=== PATIENT | female | born 1955 | race African-American/Black ===

== ENCOUNTER 2021-11-14 15:48 | Emergency (ER) | payer MEDICAID, MEDICARE ==
[~2021-11-14] VITALS: Ht 162.6 cm; Wt 70.0 kg
[~2021-11-14 15:48] MED LIST: INS7030 SUBCUT; METH-818 PO; MIRT45TA PO
[2021-11-14 16:45] LABS: BASOPHILS % 0.5 % (0.0-2.0); HEMATOCRIT. 29.7 % (36.0-48.0); HEMOGLOBIN. 9.6 g/dL (12.0-16.0); LYMPHOCYTES % 17.3 % (20.0-50.0); MEAN CORPUSCULAR HEMOGLOBIN 30.9 pg (28.0-32.0); MEAN CORPUSCULAR VOLUME 95.6 fL (81.0-99.0); MEAN PLATELET VOLUME 8.1 fl (7.4-10.4); MONOCYTES % 11.4 % (2.0-8.0); NEUTROPHILS % 69.8 % (40.0-76.0); PLATELET 235 x1000/uL (130-400); RED CELL DISTRIBUTION WIDTH 14.9 % (11.6-14.6)
[2021-11-14 16:48] LABS: CHLORIDE 102 mEq/L (98-107)
[2021-11-14 16:51] LABS: ETHANOL BLOOD < 10 mg/dL
[2021-11-14 16:57] LABS: CREATINE KINASE 185 IU/L (26-192)
[2021-11-14] MEDS ORDERED: CEFEPIME HCL 1000MG/VIAL INJ IV ONE (17:30)
[2021-11-14] MEDS ORDERED: VANCOMYCIN 1.25GM PMX (XELLIA) 250 ML IV NR (18:00)
[2021-11-14] MEDS ORDERED: CEFEPIME 1,000 MG in DEXTROSE 5% WATER 50 ML IV SCH (18:30)
[2021-11-14 20:00] VITALS: BP 160/77
== END 2021-11-14 20:00 | disposition home or self-care (01) ==
LOC: ER 15:48
DX: R41.82 Altered mental status, unspecified (principal); Z20.822 Contact with and (suspected) exposure to COVID-19; Z88.0 Allergy status to penicillin; Z98.51 Tubal ligation status
CPT/HCPCS: 36415; 70450; 71045; 80053; 80307; 80320; 80329; 82140; 82550; 83605; 83690; 85025; 87426; 99285; J0692; J3370; J7060; G0480

== ENCOUNTER 2021-11-24 10:23 | Emergency (ER) | payer MEDICARE, MEDICAID ==
[~2021-11-24] VITALS: Ht 165.1 cm; Wt 73.0 kg
[2021-11-24 10:31] VITALS: BP 159/133
[2021-11-24] MEDS ORDERED: TETANUS, DIPHTHERIA, PERTUSSIS VAC/PF 0.5ML (>10YR OLD) IM ONE (11:00)
[2021-11-24] MEDS ORDERED: CLINDAMYCIN HCL 150MG CAPSULE PO SCH (11:00)
[2021-11-24] MEDS ORDERED: ACETAMINOPHEN 325MG TABLET PO ONE (11:00)
[2021-11-24] MEDS ORDERED: CLIN300C12 MT (11:11)
[2021-11-24] MEDS ORDERED: ACET-2708 MT (11:11)
[2021-11-24] MEDS ORDERED: CHLO473M2 MT (11:11)
[2021-11-24] MEDS ORDERED: CHLORHEXIDINE GLUCONATE 0.12% MOUTHWASH UDC SSP SCH (11:15)
== END 2021-11-24 13:11 | disposition home or self-care (01) ==
LOC: ER 10:23
DX: L08.9 Local infection of the skin and subcutaneous tissue, unspecified (principal); S00.512A Abrasion of oral cavity, initial encounter; I12.0 Hypertensive chronic kidney disease with stage 5 chronic kidney disease or end stage renal disease; E11.22 Type 2 diabetes mellitus with diabetic chronic kidney disease; N18.6 End stage renal disease; Z99.2 Dependence on renal dialysis; W18.2XXA Fall in (into) shower or empty bathtub, initial encounter; Y93.E1 Activity, personal bathing and showering; Y92.031 Bathroom in apartment as the place of occurrence of the external cause
CPT/HCPCS: 70486; 90715; 99284

== ENCOUNTER 2021-12-25 08:36 | Emergency (ER) | payer MEDICARE, MEDICAID ==
[~2021-12-25] VITALS: Ht 157.5 cm; Wt 70.0 kg
[~2021-12-25 08:36] MED LIST changes: +ACET-2708 MT; +CHLO473M2 MT; +CLIN300C12 MT
[2021-12-25] MEDS ORDERED: HYDROCODONE/ACETAMINOPHEN 5/325MG TABLET PO ONE (09:15)
[2021-12-25] MEDS ORDERED: CLONIDINE 0.1MG TABLET PO ONE (09:15)
[2021-12-25 09:35] LABS: BASOPHILS % 0.4 % (0.0-2.0); EOSINOPHILS % 1.4 % (0.0-5.0); HEMATOCRIT. 37.7 % (36.0-48.0); HEMOGLOBIN. 12.3 g/dL (12.0-16.0); LYMPHOCYTES % 9.1 % (20.0-50.0); MEAN CORPUSCULAR HEMOGLOBIN 32.5 pg (28.0-32.0); MEAN CORPUSCULAR VOLUME 99.8 fL (81.0-99.0); MEAN PLATELET VOLUME 7.7 fl (7.4-10.4); MONOCYTES % 10.9 % (2.0-8.0); NEUTROPHILS % 78.2 % (40.0-76.0); PLATELET 239 x1000/uL (130-400); RED BLOOD CELL COUNT 3.78 mill/uL (4.2-5.4); RED CELL DISTRIBUTION WIDTH 18.6 % (11.6-14.6)
[2021-12-25] MEDS ORDERED: ONDANSETRON HCL 4MG/2ML INJ IV STA (10:50)
[2021-12-25] MEDS ORDERED: MORPHINE SULFATE 4 MG/ML CPJ (NOT FOR IM USE) IV STA (10:50)
[2021-12-25] MEDS ORDERED: SODIUM BICARBONATE 8.4% 1 MEQ/ML 50ML SYR IV ONE (11:00)
[2021-12-25] MEDS ORDERED: ALBUTEROL (0.083%) 2.5MG/3ML NEB HHN ONE (11:00)
[2021-12-25] MEDS ORDERED: SODIUM POLYSTYRENE SULFONATE 15 G/60 ML BOT PO ONE (11:00)
[2021-12-25 14:03] VITALS: BP 170/75
== END 2021-12-25 14:12 | disposition left against medical advice (07) ==
LOC: ER 08:36
DX: R07.81 Pleurodynia (principal); G89.11 Acute pain due to trauma; E87.5 Hyperkalemia; M25.512 Pain in left shoulder; M25.552 Pain in left hip; W06.XXXA Fall from bed, initial encounter; Y93.89 Activity, other specified; Y92.032 Bedroom in apartment as the place of occurrence of the external cause; I12.0 Hypertensive chronic kidney disease with stage 5 chronic kidney disease or end stage renal disease; E11.22 Type 2 diabetes mellitus with diabetic chronic kidney disease; Z71.89 Other specified counseling; N18.6 End stage renal disease; Z99.2 Dependence on renal dialysis; Z79.4 Long term (current) use of insulin
CPT/HCPCS: 36415; 71101; 80048; 85025; 93005; 94644; 96374; 96375; 99285; J2270; J2405; J3490